=== PATIENT | male | born 1950 | race Caucasian/White ===

== ENCOUNTER → 2019-12-06 16:02 | Outpatient (CLI) | payer MEDICARE, SELFPAY ==
--- NOTE | ~2019-12-06 | XR_ITS ---
EXAMINATION: XR abdomen/kub 1V INDICATION: Calculus of kidney TECHNIQUE: Supine views of the abdomen were obtained on 2 radiographs. COMPARISON: 02/23/2019 FINDINGS: There is a 4 mm stone in the left kidney lower pole which is unchanged. No additional urina ry tract calculi are identified. The bowel gas pattern is normal. There is mild bilateral hip osteoar thritis. IMPRESSION: 1. Unchanged 4 mm stone in the left kidney lower pole. Reviewed, dictated and finalized at location A.
== END ==
PROVIDERS: PCP Internal Medicine Infectious Disease; Visit Provider Urology
DX: N20.0 Calculus of kidney (principal)
CPT/HCPCS: 74018

== ENCOUNTER 2020-12-07 13:47 | Outpatient (CLI) | payer MEDICARE, SELFPAY ==
--- NOTE | ~2020-12-07 | XR_ITS ---
XR abdomen/kub 1V DATE: 12/07/2020 14:06 INDICATION: Kidney calculus TECHNIQUE: AP view COMPARISON: 12/06/2019 KUB FINDINGS: Stable size of 4 mm calcified calculus overlying the left kidney, currently overlying the m id left kidney versus the lower pole left kidney on 12/06/2019. The psoas shadows are intact. No visceromegaly is detected. Barium is noted within some diverticula of the sigmoid colon. No evidence of bowel obstruction. Multiple radiopaque seeds overlie the prostate bed. Transitional lumbosacral vertebra. IMPRESSION: Stable size of 4 mm mid left renal calcified calculus Reviewed, dictated and finalized at Location A. Reviewed, dictated and finalized at location A.
== END 2020-12-07 13:48 | disposition home or self-care (01) ==
PROVIDERS: PCP Internal Medicine Infectious Disease; Visit Provider Urology
DX: N20.0 Calculus of kidney (principal)
CPT/HCPCS: 74018

== ENCOUNTER 2022-03-13 08:23 | Outpatient (CLI) | payer MEDICARE, SELFPAY ==
--- NOTE | ~2022-03-13 | CT_ITS ---
EXAMINATION: CT abdomen pelvis w con DATE: 03/13/2022 08:54 INDICATION: Prostate cancer. TECHNIQUE: Computed tomography (CT) of the abdomen and pelvis was performed with 100 mL Omnipaque 350 intravenous contrast. Automated exposure control and iterative reconstruction technique were employe d. The dose-length product was 962.33 mGy-cm. COMPARISON: CT abdomen and pelvis 06/07/2019 FINDINGS: The visualized portions of the lung bases demonstrate mild atelectasis. There is a small pn eumatocele in left lower lobe. No pleural effusion. The heart size is normal. There are coronary giovanny ry calcifications. No pericardial effusion. There is a 5.1 cm cyst in the liver. There is a gallstone in the gallbladder, which is normal in size. The spleen, pancreas, and adrenal glands are normal. Th ere are cysts in the kidneys measuring up to 3.2 cm on the left. There is mild right hydroureter. The re is a delayed left-sided contrast nephrogram. There is severe left hydronephrosis. There is a 6 mm stone in proximal left ureter. There is severe left hydroureter proximal and distal to the stone. The bladder is distended with trabeculated wall and wall thickening. There is a left posterior bladder d iverticulum. The prostate is mildly enlarged. There are brachytherapy seeds in the prostate. There is diverticulosis of the colon without evidence of diverticulitis. There are no dilated loops of bowel. The appendix is not visualized. There are no pathologically enlarged lymph nodes. There is no free i ntraperitoneal fluid. There is a left inguinal hernia containing fat. There is moderate thoracolumbar spondylosis. IMPRESSION: 1. Severe left hydronephrosis and hydroureter to the level of the bladder, new from 06/07/2019. 6 mm s tone in proximal left ureter. 2. Mild right hydroureter, new from 06/07/2019. 3. Markedly distended bladder with chronic wall thickening and trabeculation, which may be secondary to chronic outlet obstruction. Reviewed, dictated and finalized at location A. IMPRESSION: 1. Severe left hydronephrosis and hydroureter to the level of the bladder, new from 06/07/2019. 6 mm stone in proximal left ureter. 2. Mild right hydroureter, new from 06/07/2019. 3. Markedly distended bladder with chronic wall thickening and trabeculation, w hich may be secondary to chronic outlet obstruction.
--- NOTE | ~2022-03-13 | NM_ITS ---
EXAMINATION: NM bone scan whole body DATE: 03/13/2022 12:23 INDICATION: Prostate cancer TECHNIQUE: 23.6 mCi Tc-99m HDP was administered intravenously. Delayed whole-body scintigrams were o btained. COMPARISON: Bone scan dated 06/07/[address] abdomen and pelvis dated 03/13/2022. FINDINGS: Likely degenerative joint centered uptake at the bilateral acromioclavicular joints. Relative symmetr ic small bilateral foci of mild uptake associated with costochondral calcification along the both wale es of the inferior sternum. No other suspicious bone lesions to suggest metastatic disease. Left hydr oureteronephrosis. IMPRESSION: 1. No evident metastatic disease. 2. Left hydroureteronephrosis. Reviewed, dictated and finalized at location A.
[2022-03-13 08:53] LABS: Estimated Glomerular Filt Rate > 60
== END 2022-03-13 08:24 | disposition home or self-care (01) ==
PROVIDERS: PCP Internal Medicine Infectious Disease; Visit Provider Urology
DX: C61 Malignant neoplasm of prostate (principal); N13.30 Unspecified hydronephrosis
CPT/HCPCS: 74177; 78306; A9561; Q9967

== ENCOUNTER 2022-03-18 10:25 | Outpatient (CLI) | payer MEDICARE, SELFPAY ==
--- NOTE | 2022-03-18 10:33 | ECG_ITS ---
Measurements Intervals [place] Rate: 89 P: 38 VA: 162 QRS: -18 QRSD: 106 T: 36 QT: 359 QTc: 437 Interpretive Statements SINUS RHYTHM INFERIOR MYOCARDIAL INFARCTION [40+ ms Q WAVE AND/OR ST/T ABNORMALITY IN II/aVF], PROBABLY OLD NO PREVIOUS ECG AVAILABLE FOR COMPARISON Electronically Signed On 03-18-2022 12:58:01 CDT by Augustine Mendoza M.D.
== END 2022-03-18 10:26 | disposition home or self-care (01) ==
LOC: ANHSURGERY 10:28
PROVIDERS: PCP Internal Medicine Infectious Disease; Visit Provider Urology
DX: I10 Essential (primary) hypertension (principal); Z01.818 Encounter for other preprocedural examination
CPT/HCPCS: 93005

== ENCOUNTER 2022-03-21 01:33 | Day surgery (SDC) | payer MEDICARE, SELFPAY ==
[2022-03-15 14:34] VITALS: BMI 29.1
--- NOTE | 2022-03-15 14:59 | PC.NURSE ---
Report to the Outpatient Waiting Room, entrance under the green pavilion located off [facility], at time __7:30AM on date ___03/21/22____. Planned Procedure Time: __9:30AM . Time changes happen often and if your time is changed the preop area will call you the afternoon before. - You and your visitor will be asked to self-screen and do not enter if you have any COVID symptoms. - We encourage only one visitor and NO visitors under age 16 are allowed at this time. Your visitor will receive communication by the phone number that is given day of service. - The patient visitor is requested to social distance or may leave the building when not with patient due to restrictions. - A mask is required within the hospital. Patients may have clear liquids (water, carbonated beverages, clear teas, apple juice) until 3 hours prior to surgery with a maximum of 20 ounces. - No food from midnight until time of surgery Take the following medications with a SIP of water the morning of surgery: __NONE Medications to discontinue per physician ___HOLD ASPIRIN AND ALL VITAMINS/SUPPLEMENTS 7 DAYS PRE-OP PER DR DOWD(PER PT)- LAST DOSE 03/14/22 PER PT. Please no make-up, nail thai, hairspray, perfume, deodorant, or body powder the day of surgery. No jewelry (including any body piercings) or valuables the day of surgery, leave them at home. Please take a shower or bath the night before, or the morning of, surgery with an antibacterial soap. Wear comfortable, loose fitting clothing. Children are encouraged to wear pajamas. - Jewelry must be removed prior to entering the operating room. Rings and piercings that are not removed may be cut off. - The hospital will not accept responsibility for valuables. - Please leave all valuables, including medications, at home the day of surgery. If you are going home after surgery, a licensed hack driver must drive you home. - NO public transportation without another adult. - We recommend that an adult stay with you for 24 hours following discharge. - We also recommend that you do not drive, make important decision, drink alcoholic beverages, or take any drugs that were not prescribed by your health care provider for at least 24 hours after your discharge time. Follow any additional instructions given to you from your surgeon. If you or anyone in your household have experienced Covid symptoms in the past week, please notify your surgeon or the nurse liaison at the phone number below for possible testing. Telephone instructions given to __PATIENT and asked if any additional questions and then verbalized understanding. Patient advised to call surgeon office or pre surgery nurse liaison [phone] if any additional questions.
[2022-03-21] VITALS (7 sets, daily range): BP systolic 135–150; BP diastolic 78–95; PULSE 64–84; RESP 10–16; TEMP 36.7–36.9; O2SAT 95–100
--- NOTE | ~2022-03-21 | XR_ITS ---
EXAMINATION: XR retrograde pyelo w/stent BI DATE: 03/21/2022 09:51 INDICATION: Left internal ureteral stent placement TECHNIQUE: Fluoroscopic images from a left internal ureteral stent placement are submitted for review . 77 seconds of fluoroscopy time. FINDINGS: There is a left double-J internal ureteral stent projecting in expected position, with proximal [place] loop at the level of the renal pelvis and distal loop in the pelvis within the bladder lumen. IMPRESSION: 1. Left internal ureteral stent placement. Please refer to real-time procedural findings for detail s. Reviewed, dictated and finalized at location A. IMPRESSION: 1. Left internal ureteral stent placement. Please refer to real-time procedur al findings for details.
--- NOTE | 2022-03-21 07:13 | WPDHPUPDATE1 ---
History and Physical Update Update Date/Time: 03/21/22 07:13 History and Physical has been reviewed, including an updated exam of the patient. There are NO changes in the patient's condition. Risks, benefits, and alternatives have been discussed and questions answered. Patient agrees to proceed with procedure.
[2022-03-21] MEDS: LACTATED RINGERS 1,000 ML 30 ML IV CONT (08:00)
--- NOTE | 2022-03-21 08:42 | P.PNAN_ITS ---
Anes - Initial Pre Proc Eval Procedure: Operation Date: 03/21/22 09:30 Proposed Procedures p Cystoscopy, Bilateral Retrograde Pyelogram, Left Ureteroscopy, Stone Extraction, Possible Bilateral Stent Placement, Possible Holmium Laser - Samir Moise MD Date/Time: 03/21/22 08:42 Surgeon: Samir Moise MD Pre Op Diagnosis: bilateral hydronephrosis, kidney stones Patient Data Age: 72 Gender: M Height: 1.88 m Weight: 103 kg Allergies Allergy/AdvReac Type Severity Reaction Status Date / Time No Known Allergies Allergy Unverified 03/21/22 08:40 Home Medications Medication Instructions Recorded Confirmed Type aspirin 81 mg tablet,delayed 81 mg PO DAILY 03/15/22 03/21/22 History release atorvastatin 10 mg tablet 10 mg PO DAILY 03/15/22 03/21/22 History cholecalciferol (vitamin D3) 50 50 mcg PO DAILY 03/15/22 03/21/22 History mcg (2,000 unit) tablet loratadine 10 mg tablet (Claritin) 10 mg PO DAILY 03/15/22 03/21/22 History losartan 50 mg tablet 50 mg PO QAM 03/15/22 03/21/22 History oxybutynin chloride 5 mg 5 mg PO DAILY 03/15/22 03/21/22 History tablet,extended release 24 hr tamsulosin 0.4 mg capsule 0.4 mg PO DAILY 03/15/22 03/21/22 History Patient hx anesthesia problems: none Family hx anesthesia problems: none Results Review: All pre-operative results and documents have been reviewed as part of the pre- operative evaluation. [facility] Past Medical History Medical History Afib GERD (gastroesophageal reflux disease) Hyperlipidemia Hypertension Prostate CA Social History Social History Smoking status: Former smoker Tobacco type: pipe, cigars and smokeless tobacco Smoking end date: 11/16/01 Additional smoking assessment comments: SMOKED PIPES/CIGARS 5 TIMES/WEEK X 15 YEARS Alcohol intake: current Drinks per week: 14 Substance use: never Living arrangements: with family Additional living arrangements comments: SPOUSE Spiritual care concerns: No Anes - Eval Final PreProcedure Day of Procedure 03/21/22 08:42 Patient weight: overweight Heart: regular rate and rhythm Lungs: clear to auscultation Airway: Mallampati scale class II Neurological: alert and oriented Last oral intake: >/= 8 hours ASA classification: III Emergent: no Anesthetic plan: proceed Anesthesia type and monitoring: general LMA and standard monitoring Results Review: All pre-operative results and documents have been reviewed as part of the pre- operative evaluation. Informed Consent: The patient's anesthetic plan and its attendant risks and benefits were discussed with the patient/family/POA. Questions were solicited and answers provided to the satisfaction of the patient/family/POA.
[2022-03-21] MEDS: ceFAZolin 2 GM/D5W 50 ML 2 GM/50 ML BAG IVPB (09:00)
[2022-03-21] MEDS: LIDOCAINE HCL 2% GEL UROJET 10 ML PKG MUCOUS MEM (09:14)
--- NOTE | 2022-03-21 09:57 | W.PM.PROC2 ---
Procedure Note - Detailed Date of Procedure 03/21/22 Pre-op Diagnosis bilateral hydronephrosis, left proximal ureteral stone Post-op Diagnosis Same (plus bulbous urethral stricture) Procedure Performed Cystoscopy, urethral dilatation, bilateral retrograde pyelography, left ureteroscopy with laser lithotripsy and stone extraction, left ureteral stent placement Surgeon Samir Moise MD Anesthesia General Description of Procedure Patient is brought the op suite was prepped draped in routine sterile fashion while in dorsal lithotomy position after the uneventful induction of a general LMA anesthetic. Cystoscopy is undertaken with a 19 F rigid cystoscope. Again immediately see that he has a very tight, moderately dense bulbous urethral stricture. I dilated this from 8 F to 22 F with Amplatz dilators. I then performed cystoscopy which showed a markedly distended bladder with dense trabeculations and cellule formation throughout. An 8 F bulb-tipped catheter was used to obtain bilateral retrograde pyelogram. He has scant hydronephrosis on the right and moderate hydronephrosis on the left. There appears to be no point of obstruction and I suspect this hydronephrosis results from his urinary retention/ incomplete bladder emptying. I did place a 0.035 in glidewire in the left renal pelvis and performed left flexible ureteroscopy after dilating distal ureter with an 8 F/ 10 F dilator. His 6 mm left proximal ureteral stone is dusted with a 273 micron holmium laser fiber. One small piece was extracted for analysis using a 1.9 F disposable stone basket. I then placed a 4.8 F left double-J ureteral stent with the proximal coil in his renal pelvis and distal coil in his bladder. Scopes wires were removed an 18 F urethral catheter was placed to drainage. I will plan to leave this catheter for to 7 days. Drains Yes Packing No Pathology Yes Complications No immediate complications Condition Stable Disposition PACU
== END 2022-03-21 11:20 | disposition home or self-care (01) ==
PROVIDERS: PCP Internal Medicine Infectious Disease; Visit Provider Urology
PROC: (CPT 52352; principal; 2022-03-21 09:30)
DX: N13.2 Hydronephrosis with renal and ureteral calculous obstruction (principal); N35.912 Unspecified bulbous urethral stricture, male; Z85.46 Personal history of malignant neoplasm of prostate
CPT/HCPCS: 52356; 74420; 82365; 88300; 93005; A9270; C1758; C1769; C2617; J0690; J1100; J2370; J2405; J2704; J3010; J7120

== ENCOUNTER 2022-04-15 11:12 | Outpatient (CLI) | payer MEDICARE, SELFPAY ==
--- NOTE | ~2022-04-15 | US_ITS ---
US renal BI 04/15/2022 12:02 Procedure: Realtime transabdominal ultrasound of the kidneys and bladder. Indication: Urine retention Comparison: CT dated 03/13/2022 Findings: Renal echotexture is normal bilaterally without solid mass or hydronephrosis. There are mook ateral renal cysts measuring 1.9 cm on the right and 3.7 cm on the left. The right kidney measures 12 cm and left kidney measures 12.8 cm. Bladder contains a Quevedo catheter. Impression: 1: Bilateral renal cysts. Reviewed, dictated and finalized at location A. PROVIDER RELATIONS Impression: 1: Bilateral renal cysts.
== END 2022-04-15 11:13 | disposition home or self-care (01) ==
PROVIDERS: PCP Internal Medicine Infectious Disease; Visit Provider Urology
DX: R33.9 Retention of urine, unspecified (principal); N28.1 Cyst of kidney, acquired
CPT/HCPCS: 76775

== ENCOUNTER 2022-05-05 09:35 | Day surgery (SDC) | payer MEDICARE, SELFPAY ==
[2022-05-05] VITALS (7 sets, daily range): BP systolic 136–189; BP diastolic 78–94; PULSE 75–100; RESP 11–18; TEMP 36.6–36.7; O2SAT 96–98
--- NOTE | 2022-05-05 09:49 | ED.GENADULT ---
HPI - General Adult General Chief complaint: Urogenital-Male Stated complaint: block catheter Time Seen by Provider: 05/05/22 09:42 History of Present Illness HPI narrative: Patient is a 72-year-old male with a history of prostate cancer, patient of Dr. Moise here for evaluation of a blocked urinary catheter. Patient had the catheter initially placed about a month ago after a cystoscopy and urogram with Dr. Moise. He had several trials of void after this was placed which were unsuccessful, attributed to bladder atony. Patient's most recent catheter was placed 10 days ago. States that it has not drained any liquid over the past 8 hours despite drinking plenty of fluids. Patient's irrigated the catheter without relief. Patient denies bladder discomfort or abdominal pain. Reportedly the catheter had a difficult insertion and required a guidewire with the urologist. Related Data Home Medications Medication Instructions Recorded Confirmed aspirin 81 mg tablet,delayed 81 mg PO DAILY 03/15/22 03/21/22 release atorvastatin 10 mg tablet 10 mg PO DAILY 03/15/22 03/21/22 cholecalciferol (vitamin D3) 50 50 mcg PO DAILY 03/15/22 03/21/22 mcg (2,000 unit) tablet loratadine 10 mg tablet (Claritin) 10 mg PO DAILY 03/15/22 03/21/22 losartan 50 mg tablet 50 mg PO QAM 03/15/22 03/21/22 oxybutynin chloride 5 mg 5 mg PO DAILY 03/15/22 03/21/22 tablet,extended release 24 hr tamsulosin 0.4 mg capsule 0.4 mg PO DAILY 03/15/22 03/21/22 Allergies Allergy/AdvReac Type Severity Reaction Status Date / Time No Known Allergies Allergy Unverified 03/21/22 08:40 Review of Systems Review of Systems: Gen.: Denies fevers or chills Eyes: Denies eye pain or visual change ENT: Denies congestion Respiratory: Denies shortness of breath or cough CV: Denies chest pain or palpitations GI: Denies abdominal pain nausea, emesis or diarrhea reports blocked catheter. Denies burning, urgency, frequency or hematuria Musculoskeletal: Denies back pain or muscle pain Neuro: Denies numbness, tingling, weakness or focal weakness Skin: Denies rash Except as documented, all other systems reviewed and negative [facility] Past Medical History Medical History Afib GERD (gastroesophageal reflux disease) Hyperlipidemia Hypertension Prostate CA Social History Social History Smoking status: Former smoker Tobacco type: pipe, cigars and smokeless tobacco Smoking end date: 11/16/01 Additional smoking assessment comments: SMOKED PIPES/CIGARS 5 TIMES/WEEK X 15 YEARS Alcohol intake: current Drinks per week: 14 Substance use: never Additional living arrangements comments: SPOUSE Spiritual care concerns: No Exam Narrative: APPEARANCE: Well appearing, no pain in distress, well-nourished. Head: Normocephalic and atraumatic. EYES: PERRLA/EOMI, conjunctivae clear NOSE: No nasal drainage EARS: External ear normal in appearance THROAT: Oropharynx is clear. Mucous membranes are moist. NECK: Supple. No adenopathy, no masses. RESPIRATORY: Airway patent, respirations nonlabored. Clear to auscultation bilaterally, no rales, rhonchi, wheezing. CARDIOVASCULAR: Regular rate and rhythm without murmurs, rubs, or gallops. ABDOMINAL: No suprapubic discomfort. Mild fullness palpated. Normoactive bowel sounds. Soft, nontender, nondistended. No rebound tenderness or guarding. MUSCULOSKELETAL: Extremities are warm and well-perfused. Moves all extremities well. No edema. NEURO: Normal speech. No focal neurologic deficits. SKIN: Skin is warm and dry. No rashes. PSYCHIATRIC: Normal affect/mood. Course Vital Signs Vital signs: Vital Signs Temperature 98.1 F 05/05/22 09:36 Pulse Rate 100 05/05/22 09:36 Respiratory Rate 18 05/05/22 09:36 Blood Pressure 151/85 H 05/05/22 09:36 Pulse Oximetry 97 05/05/22 09:36 Oxygen Delivery R
--- NOTE | 2022-05-05 10:18 | PC.NURSE ---
tried irrigating pt's catheter, but catheter is blocked and will not flush. ISI Rodriguez made aware. she states she will call urology first before proceeding.
--- NOTE | 2022-05-05 11:11 | PC.NURSE ---
Dr. Mishra at bedside at this time attempting martin catheter insertion.
--- NOTE | 2022-05-05 11:32 | WPDURCON ---
Assessment and Plan Assessment and plan (1) Urethral stricture: Code(s): N35.919 - Unspecified urethral stricture, male, unspecified site Status: Acute Assessment and Plan: I removed Quevedo catheter and attempted to replace with a 16F coude without success. I then attempted a glidewire which bent back several times, finally I attempted cystoscopy was unable to navigate the stricture, I attempted to place a wire through the stricture. I then attempted the catheter which unfortunately did not advance. As I was not certain I was in the bladder, I elected against dilation and will take the patient to the operating room. To OR for cystoscopy and urethral dilation, possible suprapubic cystostomy tube placement. Urology Consult Note HPI Date Seen: 05/05/22 Primary Care Provider: Berry Young, Consult Narrative Narrative: Star Redding is a 72 year old male who presents with catheter malfunction. He has a history of urethral stricture after brachytherapy. He reports he required catheter placement over a wire [address] Pena. His catheter stopped draining 8 hours ago, he presents to the ER for evaluation. Review of Systems Constitutional: Constitutional: Reports no additional constitutional complaints Eyes: Eyes: Reports no additional eye complaints ENT: Reports system reviewed and no additional complaints, except as documented Cardiovascular: Cardiovascular: Reports no additional cardiovascular complaints Respiratory: Respiratory: Reports no additional respiratory complaints Gastrointestinal: Gastrointestinal: Reports no additional gastrointestinal complaints Genitourinary: Genitourinary: Reports as per HPI (urinary retention) [facility] Past Medical History Medical History Afib GERD (gastroesophageal reflux disease) Hyperlipidemia Hypertension Prostate CA Social History Social History Smoking status: Former smoker Tobacco type: pipe, cigars and smokeless tobacco Smoking end date: 11/16/01 Additional smoking assessment comments: SMOKED PIPES/CIGARS 5 TIMES/WEEK X 15 YEARS Alcohol intake: current Drinks per week: 14 Substance use: never Additional living arrangements comments: SPOUSE Spiritual care concerns: No Meds Home Medications and Allergies Home Medications Medication Instructions Recorded Confirmed Type aspirin 81 mg tablet,delayed 81 mg PO DAILY 03/15/22 03/21/22 History release atorvastatin 10 mg tablet 10 mg PO DAILY 03/15/22 03/21/22 History cholecalciferol (vitamin D3) 50 50 mcg PO DAILY 03/15/22 03/21/22 History mcg (2,000 unit) tablet loratadine 10 mg tablet (Claritin) 10 mg PO DAILY 03/15/22 03/21/22 History losartan 50 mg tablet 50 mg PO QAM 03/15/22 03/21/22 History oxybutynin chloride 5 mg 5 mg PO DAILY 03/15/22 03/21/22 History tablet,extended release 24 hr tamsulosin 0.4 mg capsule 0.4 mg PO DAILY 03/15/22 03/21/22 History cephalexin 500 mg capsule 500 mg PO Q8H #9 caps 03/21/22 Rx hydrocodone 5 mg-acetaminophen 325 1 - 2 tablet PO Q6H PRN pain #20 03/21/22 Rx mg tablet tabs Allergies Allergy/AdvReac Type Severity Reaction Status Date / Time No Known Allergies Allergy Unverified 03/21/22 08:40 Vital Signs Vital Signs - 24 hr 05/05/22 09:36 Temperature 98.1 F Pulse Rate 100 Respiratory Rate 18 Blood Pressure 151/85 H Pulse Oximetry 97 Oxygen Delivery Room Air Exam Narrative: NAD, A&Ox3 RRR eWOB S/NT/ND Quevedo not draining
--- NOTE | 2022-05-05 11:38 | WPDANESEPPF ---
Anes - Initial Pre Proc Eval Date/Time: 05/05/22 11:38 Pre Op Diagnosis: block catheter Patient Data Age: 72 Gender: M Height: 1.88 m Weight: 102 kg Last Vital Signs Temp 36.7 C 05/05/22 09:36 Pulse 100 05/05/22 09:36 Resp 18 05/05/22 09:36 BP 151/85 H 05/05/22 09:36 Pulse Ox 97 05/05/22 09:36 O2 Del Method Room Air 05/05/22 09:36 Allergies Allergy/AdvReac Type Severity Reaction Status Date / Time No Known Allergies Allergy Unverified 03/21/22 08:40 Home Medications Medication Instructions Recorded Confirmed Type aspirin 81 mg tablet,delayed 81 mg PO DAILY 03/15/22 03/21/22 History release atorvastatin 10 mg tablet 10 mg PO DAILY 03/15/22 03/21/22 History cholecalciferol (vitamin D3) 50 50 mcg PO DAILY 03/15/22 03/21/22 History mcg (2,000 unit) tablet loratadine 10 mg tablet (Claritin) 10 mg PO DAILY 03/15/22 03/21/22 History losartan 50 mg tablet 50 mg PO QAM 03/15/22 03/21/22 History oxybutynin chloride 5 mg 5 mg PO DAILY 03/15/22 03/21/22 History tablet,extended release 24 hr tamsulosin 0.4 mg capsule 0.4 mg PO DAILY 03/15/22 03/21/22 History cephalexin 500 mg capsule 500 mg PO Q8H #9 caps 03/21/22 Rx hydrocodone 5 mg-acetaminophen 325 1 - 2 tablet PO Q6H PRN pain #20 03/21/22 Rx mg tablet tabs Patient hx anesthesia problems: none Family hx anesthesia problems: none Results Review: All pre-operative results and documents have been reviewed as part of the pre-operative evaluation. [facility] Past Medical History Medical History Afib GERD (gastroesophageal reflux disease) Hyperlipidemia Hypertension Prostate CA Social History Social History Smoking status: Former smoker Tobacco type: pipe, cigars and smokeless tobacco Smoking end date: 11/16/01 Additional smoking assessment comments: SMOKED PIPES/CIGARS 5 TIMES/WEEK X 15 YEARS Alcohol intake: current Drinks per week: 14 Substance use: never Additional living arrangements comments: [facility] Spiritual care concerns: No Anes - Eval Final PreProcedure Day of Procedure 05/05/22 11:38 Patient weight: overweight Heart: regular rate and rhythm Lungs: clear to auscultation Airway: Mallampati scale class II Neurological: alert and oriented Last oral intake: >/= 8 hours ASA classification: III Emergent: no Anesthetic plan: proceed Anesthesia type and monitoring: general LMA and standard monitoring Results Review: All pre-operative results and documents have been reviewed as part of the pre-operative evaluation. Informed Consent: The patient's anesthetic plan and its attendant risks and benefits were discussed with the patient/family/POA. Questions were solicited and answers provided to the satisfaction of the patient/family/POA.
--- NOTE | 2022-05-05 11:38 | WPDHPUPDATE1 ---
History and Physical Update Update Date/Time: 05/05/22 11:38 History and Physical has been reviewed, including an updated exam of the patient. There are NO changes in the patient's condition. Risks, benefits, and alternatives have been discussed and questions answered. Patient agrees to proceed with procedure.
[2022-05-05] MEDS: ceFAZolin 2 GM/D5W 50 ML 2 GM/50 ML BAG IVPB (12:14)
[2022-05-05] MEDS: LACTATED RINGERS 1,000 ML 30 ML IV CONT (12:15)
--- NOTE | 2022-05-05 12:40 | W.PM.PROC2 ---
Procedure Note - Detailed Date of Procedure 05/05/22 Pre-op Diagnosis Radiation urethral stricture Post-op Diagnosis Same Procedure Performed 1. Urethral dilation and complex urethral catheter placement. 2. Irrigation of cathteter Surgeon Francisco Mishra MD Anesthesia General Findings Large posterior urethral false passage, where catheter is directed from urethral stricture. Appropriate placement of 18F [employer] [place] catheter, irrigated and confirmed to be in appropriate position. Rectal examination with no defect noted and no blood on gloved finger. Description of Procedure After a discussion of risks and benefits the patient offers informed written consent. He was taken to the operating room and placed on the table in the supine position, anesthesia induced and LMA placed without incident. He was transferred to dorsal lithotomy position and prepped and draped. The 22F cystoscope was advanced into the urethra and navigated through the urethral stricture thereby dilating the stricture by calibration. The false passage was noted. The cystoscope was pointed to 12:[address] into the bladder. A glide wire was advanced and the cystoscope removed, an 18F [employer] [place] catheter was advanced over the wire into the bladder and drained urine. 10 cc of sterile water was placed in the balloon. The catheter was then irrigated free of clot and irrigated freely. Drains Yes (18F [employer] [place] Catheter) Complications No immediate complications Condition Stable
== END 2022-05-05 13:50 | disposition home or self-care (01) ==
LOC: ANHED 09:55 → ANHSURGERY 11:49
PROVIDERS: PCP Internal Medicine Infectious Disease; Visit Provider Urology
PROC: 0T7D8ZZ Dilation of Urethra, Via Natural or Artificial Opening Endoscopic (ICD-10-PCS; CPT 52281; principal; 2022-05-05 12:30)
DX: N35.819 Other urethral stricture, male, unspecified site (principal); N36.5 Urethral false passage; I48.91 Unspecified atrial fibrillation; I10 Essential (primary) hypertension; E78.5 Hyperlipidemia, unspecified; K21.9 Gastro-esophageal reflux disease without esophagitis; Z85.46 Personal history of malignant neoplasm of prostate; Z87.891 Personal history of nicotine dependence; Z79.82 Long term (current) use of aspirin
CPT/HCPCS: 52281; 99285; A9270; C1769; J0690; J1100; J2405; J2704; J3010; J7030; J7120

== ENCOUNTER 2022-10-11 11:54 | Outpatient (CLI) | payer MEDICARE, SELFPAY ==
--- NOTE | ~2022-10-11 | PE_ITS ---
EXAMINATION: PET_PETPSMAST_PT DATE: 10/11/2022 14:48 INDICATION: Prostate cancer post brachytherapy 12 years prior presenting with increasing PSA TECHNIQUE: 4.523 mCi of Ga-68 PSMA was administered i.v. Low dose computed tomography (CT) images we re acquired from the base of the brain to the base of the brain to the proximal thighs for attenuatio n correction and anatomic localization. Positron emission tomography (PET) images were acquired in th e same distribution beginning 62 minutes after injection. Images including fused PET/CT images were r econstructed in axial, coronal, and sagittal planes. Automated exposure control technique was employe d. The dose-length product was 618.02mGy-cm. COMPARISON: CT abdomen and pelvis dated 03/13/2022 FINDINGS: Head/neck: There is symmetric increased activity in the oral cavity, palatine tonsils, parotid glands, submandi bular glands, laryngeal muscles and ocular muscles without CT correlate, likely physiologic. No patho logically enlarged cervical lymphadenopathy or suspicious foci of increased FDG uptake in the visuali zed head or neck. Chest: Respiratory motion the lungs with mild dependent atelectasis in the lower lobes. There is mild apical pleural parenchymal scarring, right greater than left. No suspicious pulmonary nodules, pneumonia or pleural effusion. Heart size is normal. No pericardial effusion. No pathologically enlarged or PSMA avid thoracic lymphadenopathy. Abdomen/pelvis/proximal thighs: Physiologic renal accumulation and excretion of activity in the kidneys, bladder and along portions o f ureters. Excreted activity extends from the bladder along the suprapubic Quevedo catheter. There are couple small foci of mild uptake positioned along the base of the bladder slightly cephalad to the le nay of the brachytherapy seeds in on either side of the expected course of the ureter with maximal PS A values of 6.7 on the left and 6.5 on the right which are without radiologic correlate. This appears however separate from the activity in the bladder and could not exclude a local recurrence there is no evident change in distribution of the more caudal brachytherapy seeds to suggest mass effect from a more caudal extraprostatic lesion. Photopenic defect associated with a 3.8 cm exophytic cyst arisin g from the lower pole of the left kidney. Additional photopenic defect associated with a 5.5 cm cyst in the left hepatic lobe. Otherwise normal degree and slightly heterogenous pattern of increased upta ke throughout the liver and spleen without radiologic correlate or dominant PSMA avid lesion small ca lcified gallstone in the dependent aspect of the otherwise normal gallbladder. No intra or extrahepat ic biliary ductal dilation. The pancreas and bilateral adrenal glands are normal. Moderate uptake sc attered throughout the bowels with typical duodenal and proximal jejunal predominance and without rad iologic correlate, also likely physiologic. No other abnormal foci of increased uptake or pathologica lly enlarged lymphadenopathy in the abdomen, pelvis or proximal thighs. Musculoskeletal: No suspicious lytic, blastic or PSMA avid bone lesions. IMPRESSION: 1. A couple small foci of mild increased PSMA activity likely in the cephalad central prostate cephal ad to the level of the multiple unchanged brachytherapy seeds but which appears from the hi gher activity in the bladder which does raise some concern for a local recurrence. There are however some small bladder diverticula evident on the earlier CT imaging and this could represent a minimal a mount of urine within bladder diverticula although none are seen on the prior imaging in the region o f the base of the bladder. No evident metastatic disease. Reviewed, dictated and finalized at location A.
== END 2022-10-11 11:55 | disposition home or self-care (01) ==
PROVIDERS: PCP Internal Medicine Infectious Disease; Visit Provider Urology
DX: C61 Malignant neoplasm of prostate (principal)
CPT/HCPCS: 78815; A9596

== ENCOUNTER 2024-05-18 09:28 | Outpatient (CLI) | payer MEDICARE, SELFPAY ==
--- NOTE | ~2024-05-18 | PE_ITS ---
EXAMINATION: PET_PETPSMAST_PT DATE: 05/18/2024 11:52 INDICATION: Prostate cancer TECHNIQUE: 5.456 mCi of Illucix Ga-68([id number]) was administered i.v. Low dose computed alejandro graphy (CT) images were acquired from the base of the brain to the base of the brain to the proximal thighs for attenuation correction and anatomic localization. Positron emission tomography (PET) image s were acquired in the same distribution beginning 88 minutes after injection. Images including fused PET/CT images were reconstructed in axial, coronal, and sagittal planes. Automated exposure control technique was employed. The dose-length product was 1293.28mGy-cm. COMPARISON: 10/11/2022 FINDINGS: Head/neck: Typical pattern of symmetric physiologic increased activity in the lacrimal, parotid and submandibula r glands as well as along the mucosa of the nasal and oral cavities, pharynx and hypopharynx. No path ologically enlarged cervical lymphadenopathy or suspicious foci of increased uptake in the visualized head or neck. Chest: Scattered dependent and basilar predominant atelectasis in both lungs. No suspicious pulmonary nodule s or pleural effusion. Heart size is normal. Atherosclerotic coronary artery calcific location. Aorti c valve calcification. Thoracic aorta is normal in caliber. No pathologically enlarged or PSMA avid t horacic lymphadenopathy. Abdomen/pelvis/proximal thighs: Physiologic renal accumulation and excretion of activity in the kidneys, bladder and along portions o f ureters. Photopenic defects associated with a low-attenuation exophytic cyst at the lower poles of both kidneys measuring 3.8 cm on the left and 1.9 cm on the right. Suprapubic Quevedo catheter with dif fuse wall thickening of the partially decompressed bladder. There are couple stones in the dependent bladder. There is activity within a left-sided bladder diverticulum. Typical configuration of numerou s brachytherapy seeds at the prostate with no evident interval displacement or mass effect to suggest locally recurrent disease. There is a more gradual transition from the intense intraluminal bladder activity to the surrounding photopenia at the base of the bladder where the bladder contacts the pros talley cephalad to the level of the brachial therapy seeds and could not exclude residual local disease . Normal degree and slightly heterogenous pattern of increased uptake throughout the liver and spleen without radiologic correlate or dominant PSMA avid lesion. 5.5 cm cyst in the left hepatic lobe. Sma ll calcified gallstones the dependent aspect of the normal gallbladder. The pancreas and bilateral ad renal glands are normal. Moderate uptake scattered throughout the bowels with typical duodenal and pr oximal jejunal predominance and without radiologic correlate, also likely physiologic. No other abnor mal foci of increased uptake or pathologically enlarged lymphadenopathy in the abdomen, pelvis or pro ximal thighs. Musculoskeletal: No suspicious lytic, blastic or PSV may avid bone lesions. IMPRESSION: 1. No PSMA avid lesions suspicious for metastatic disease. 2. Region of mild activity relative to the adjacent tendons and minimal bladder activity localized at the junction of the bladder and prostate which contrast to the relatively sharply defined and high c ontrast transition from the bladder activity about the remainder of the bladder as well as at a left- sided bladder diverticulum. This does raise some suspicion for possible locally recurrent disease. Th ere is no evident mass effect upon the intraprostatic brachytherapy seeds to more specifically sugges t this. Reviewed, dictated and finalized at location B. TS PHYSICIAN IMPRESSION: 1. No PSMA avid lesions suspicious for metastatic disease. 2. Region of mild activity relative to the adjacent tendons and minimal bladder activity localized at the junction of the bladder and prostate which contrast to the relatively sharply defined and high contrast transition from the bladder activity about the remainder of the bladder as well as at a left-sided bladder diverticulum. This does raise some suspicion for possible locally recurrent di sease. There is no evident mass effect upon the intraprostatic brachytherapy se eds to more specifically suggest this.
== END 2024-05-18 09:29 | disposition home or self-care (01) ==
PROVIDERS: PCP Internal Medicine Infectious Disease; Visit Provider Urology
DX: C61 Malignant neoplasm of prostate (principal); N35.919 Unspecified urethral stricture, male, unspecified site
CPT/HCPCS: 78815; A9596